=== PATIENT | male | born 1970 | race Two or more races ===

== ENCOUNTER 2016-11-29 16:59 | Inpatient (IN) | payer OTHER ==
[2016-11-29 22:09] VITALS: BMI 20.2
--- NOTE | 2016-11-29 22:49 | HP ---
CIWA Score - CIWA Score Nausea/Vomitin Muscle Tremors: 4-Moderate,w/Arms Extend Anxiety: 4-Mod. Anxious/Guarded Agitation: 4-Moderately Restless Paroxysmal Sweats: 1-Minimal Palms Moist Orientation: 3-Disoriented Date>2 days Tacttile Disturbances: 0-None Auditory Disturbances: 0-None Visual Disturbances: 0-None Headache: 1-Very Mild CIWA-Ar Total Score: 19 Admission ROS BHS - HPI Chief Complaint: withdrawal sx Allergies/Adverse Reactions: Allergies Allergy/AdvReac Type Severity Reaction Status Date / Time haloperidol [From Haldol] Allergy Verified 11/29/16 22:54 haloperidol lactate Allergy Verified 11/29/16 22:54 [From Haldol] History of Present Illness: 46 years old male with long history of alcohol xanax nicotine dependence, has asthma and schizophrenia is admitted to detox Exam Limitations: No Limitations - Ebola screening Have you traveled outside of the country in the last 21 days: No Have you had contact with anyone from an Ebola affected area: No Have you been sick,other than usual withdrawal symptoms: No Do you have a fever: No - Review of Systems Constitutional: Chills, Loss of Appetite, Changes in sleep, Unexplained wgt Loss EENT: reports: No Symptoms Reported Respiratory: reports: Cough, SOB with Exertion Cardiac: reports: No Symptoms Reported GI: reports: Nausea, Poor Fluid Intake, Indigestion, Abdominal cramping : reports: No Symptoms Reported Musculoskeletal: reports: Back Pain, Joint Pain, Muscle Pain, Neck Pain Integumentary: reports: No Symptoms Reported Neuro: reports: Tremors Endocrine: reports: No Symptoms Reported Hematology: reports: No Symptoms Reported Psychiatric: reports: Judgement Intact, Anxious, Depressed Other Systems: Reviewed and Negative Patient History - Patient Medical History Hx Anemia: No Hx Asthma: Yes Hx Chronic Obstructive Pulmonary Disease (COPD): Yes Hx Cancer: No Hx Cardiac Disorders: No Hx Congestive Heart Failure: No Hx Hypertension: No Hx Hypercholesterolemia: Yes (unknown medication) Hx Pacemaker: No HX Cerebrovascular Accident: No Hx Seizures: No Hx Dementia: No Hx Diabetes: No Hx Gastrointestinal Disorders: Yes Hx Liver Disease: No Hx Genitourinary Disorders: No Hx Sexually Transmitted Disorders: No Hx Renal Disease (ESRD): No Hx Thyroid Disease: No Hx Human Immunodeficiency Virus (HIV): No Hx Hepatitis C: No Hx Depression: No Hx Suicide Attempt: Yes (07/2916 over dose) Hx Bipolar Disorder: No Hx Schizophrenia: Yes - Patient Surgical History Past Surgical History: Yes Hx Neurologic Surgery: No Hx Cataract Extraction: No Hx Cardiac Surgery: No Hx Lung Surgery: No Hx Breast Surgery: No Hx Breast Biopsy: No Hx Abdominal Surgery: No Hx Appendectomy: No Hx Cholecystectomy: No Hx Genitourinary Surgery: No Hx Orthopedic Surgery: No Other Surgical History: hemorrhoid removed 2013 Anesthesia Reaction: No - PPD History Previous Implant?: Yes Documented Results: Negative w/o proof Implanted On Prior R Admission?: No PPD to be Administered?: Yes - Smoking Cessation Smoking history: Current every day smoker Have you smoked in the past 12 months: Yes Aproximately how many cigarettes per day: 20 Hx Chewing Tobacco Use: No Initiated information on smoking cessation: Yes 'Breaking Loose' booklet given: 11/29/16 - Substance & Tx. History Hx Alcohol Use: Yes Hx Substance Use: Yes Substance Use Type: Alcohol, Heroin, Marijuana, Tranquilizers Hx Substance Use Treatment: Yes - Substances Abused Alcohol Route: Oral Frequency: Daily Amount used: gallon volka Age of first use: 11 Date of Last Use: 11/28/16 Alprazolam (Xanax) Route: Oral Frequency: Daily Amount used: 10 mg Age of first use: 21 Date of Last Use: 11/28/16 Family Disease History - Family Disease History Family Disease History: CA: Father (), Mother (), Brother ( prostate), Other: Sister (no contact) Admission Physical Exam S - Vital Signs Vital Signs: Vital Signs - 24 hr 11/29/16 22:05 Temperature 98.6 F Pulse Rate 66 Respiratory 18 Rate Blood Pressure 120/76 - Physical General Appearance: Yes: Thin, Tremorous, Irritable, Sweating, Anxious HEENTM: Yes: Hearing grossly Normal, Normal ENT Inspection, Normocephalic, Normal Voice Respiratory: Yes: Chest Non-Tender, Lungs Clear, Normal Breath Sounds, No Respiratory Distress, No Accessory Muscle Use Neck: Yes: Supple, Trachea in good position Breast: Yes: Breasts Symetrical Cardiology: Yes: Regular Rhythm, Regular Rate, S1, S2 Abdominal: Yes: Non Tender, Soft Genitourinary: Yes: Within Normal Limits Back: Yes: Normal Inspection Musculoskeletal: Yes: full range of Motion, Gait Steady Extremities: Yes: Normal Range of Motion, Non-Tender, Tremors Neurological: Yes: Alert, Motor Strength 5/5, Normal Response Integumentary: Yes: Warm, Moist Lymphatic: Yes: Within Normal Limits - Diagnostic (1) Alcohol dependence with uncomplicated withdrawal Current Visit: Yes Status: Acute (2) Sedative, hypnotic or anxiolytic dependence with withdrawal, uncomplicated Current Visit: Yes Status: Acute (3) GERD (gastroesophageal reflux disease) Current Visit: Yes Status: Acute Qualifiers: Esophagitis presence: without esophagitis Qualified Code(s): K21.9 - Gastro-esophageal reflux disease without esophagitis (4) Nicotine dependence Current Visit: Yes Status: Acute Qualifiers: Nicotine product type: cigarettes Substance use status: in withdrawal Qualified Code(s): F17.213 - Nicotine dependence, cigarettes, with withdrawal (5) Asthma Current Visit: Yes Status: Acute Qualifiers: Asthma severity: mild intermittent Asthma complication type: with status asthmaticus Qualified Code(s): J45.22 - Mild intermittent asthma with status asthmaticus (6) Weight loss Current Visit: Yes Status: Acute (7) Schizophrenia Current Visit: Yes Status: Suspected Qualifiers: Schizophrenia type: paranoid schizophrenia Qualified Code(s): F20.0 - Paranoid schizophrenia Urine Drug Screen - Results Drug Screen Negative: No Urine Drug Screen Results: THC-Marijuana, OPI-Opiates, BZO-Benzodiazepines, MTD- Methadone
[2016-11-29] MEDS ORDERED: MAGNESIUM CITRATE 300 ML BOTTLE PO PRN (23:05)
[2016-11-29] MEDS ORDERED: LOPERAMIDE HCL 2 MG CAPSULE PO PRN (23:05)
[2016-11-29] MEDS ORDERED: P-EPHED 60MG/TRIPROLIDI 2.5MG TABLET PO PRN (23:05)
[2016-11-29] MEDS ORDERED: MAG HYDROX/AL HYDROX/SIMETH 30 ML UNIT-DOSE CUP PO PRN (23:05)
[2016-11-29] MEDS ORDERED: chlordiazePOXIDE HCL 25 MG CAPSULE PO PRN (23:05)
[2016-11-29] MEDS ORDERED: IBUPROFEN 400 MG TABLET (FP) PO PRN (23:05)
[2016-11-29] MEDS ORDERED: NICOTINE POLACRILEX 2 MG GUM BC PRN (23:05)
[2016-11-29] MEDS ORDERED: MAGNESIUM HYDROX 2400MG/30ML ORAL SUSPENSION 30 ML CUP PO PRN (23:05)
[2016-11-29] MEDS ORDERED: MENTHOL/PHENOL 1 EACH UD MM PRN (23:05)
[2016-11-29] MEDS ORDERED: guaiFENesin/D-METHORPHAN HB 10 ML UNIT-DOSE CUPS PO PRN (23:05)
[2016-11-29] MEDS ORDERED: ALBUTEROL SO4 6.7 GM HFA INHALER IH PRN (23:08)
[2016-11-30] MEDS: chlordiazePOXIDE HCL 25 MG CAPSULE PO SCH ×5 (01:43→22:32)
[2016-11-30] MEDS: diphenhydrAMINE HCL 50 MG CAPSULE PO PRN ×2 (01:45→22:33)
[2016-11-30] MEDS ORDERED: METHADONE HCL 40 MG DISPERSABLE TABLET PO SCH (07:30)
[2016-11-30] MEDS ORDERED: METHADONE 30 MG, METHADONE 5 MG PO SCH (08:10)
[2016-11-30] MEDS ORDERED: METHADONE HCL 10 MG TABLET PO ONE (09:45)
[2016-11-30 09:49] LABS: MCH 31.5 pg (25.7-33.7); MCHC 33.2 g/dl (32.0-35.9); MEAN CELL VOLUME 94.7 fl (80-96); MEAN PLT VOLUME 7.6 fl (7.5-11.1); PLATELET COUNT 257 K/MM3 (134-434); RDW 13.9 % (11.9-15.9); WHITE BLOOD COUNT 4.3 K/mm3 (4.0-10.0)
--- NOTE | 2016-11-30 09:50 | PN ---
S CIWA - CIWA Score Nausea/Vomitin-No Nausea/No Vomiting Muscle Tremors: 3 Anxiety: 4-Mod. Anxious/Guarded Agitation: 3 Paroxysmal Sweats: 3 Orientation: 0-Oriented Tacttile Disturbances: 0-None Auditory Disturbances: 0-None Visual Disturbances: 0-None Headache: 0-None Present CIWA-Ar Total Score: 13 BHS Progress Note (SOAP) Subjective: anxiety,tremors,sweating,interrupted sleep,restless. Pt. is on methadone 55mg daily,however he missed 4 days & was given 35mg on 11/29,we'll give him 45mg today and resume 55mg tomorrow. Objective: 11/30/16 09:50 Vital Signs - 8 hr 11/30/16 11/30/16 03:30 06:19 Temperature 97.7 F Pulse Rate 75 Respiratory 18 16 Rate Blood Pressure 108/66 Assessment: 11/30/16 09:50 withdrawal sx. Plan: continue detox
[2016-11-30 09:56] LABS: ANION GAP 7 (8-16); BILIRUBIN,TOTAL 0.2 mg/dL (0.2-1.0); CO2 30 mmol/L (21-32); GLUCOSE,RANDOM 89 mg/dL (74-106); SGOT/AST 31 U/L (15-37); SGPT/ALT 33 U/L (12-78)
[2016-11-30 09:57] LABS: ALK PHOS 66 U/L (45-117)
[2016-11-30] MEDS: NICOTINE 21 MG/24 HOURS TOPICAL PATCH TD SCH (10:14)
[2016-11-30] MEDS: PRENATAL VITAMINS W/ FOLIC ACID TABLET (FP) PO SCH (10:14)
[2016-11-30] MEDS: RANITIDINE HCL 150 MG TABLET (FP) PO SCH ×2 (10:14→22:31)
[2016-11-30] MEDS ORDERED: METHADONE 40 MG, METHADONE 5 MG PO ONE (10:15)
[2016-11-30] MEDS ORDERED: METHADONE HCL 40 MG DISPERSABLE TABLET ONE (10:17)
[2016-11-30] MEDS ORDERED: METHADONE HCL 5 MG TABLET ONE (10:18)
--- NOTE | 2016-11-30 13:24 | CONSULT ---
[facility] Psychiatric Consult - Data Date of interview: 11/30/16 Admission source: [facility] Identifying data: First admission to [facility] for this 46 y/o AA male seeking detox treatment on for alcohol,marijuana and benzodiazepine (xanax) dependence.Patient is single without children,domiciled,unemployed and supported on Welfare benefits. Substance Abuse History: - Smoking Cessation. Smoking history: Current every day smoker. Have you smoked in the past 12 months: Yes. Aproximately how many cigarettes per day: 20. Hx Chewing Tobacco Use: No. Initiated information on smoking cessation: Yes. 'Breaking Loose' booklet given: 11/29/16. - Substance & Tx. History. Hx Alcohol Use: Yes. Hx Substance Use: Yes. Substance Use Type : Alcohol, Heroin, Marijuana, Tranquilizers. Hx Substance Use Treatment: Yes. - Substances Abused. Alcohol. Route: Oral. Frequency: Daily. Amount used : gallon volka. Age of first use: 11. Date of Last Use: 11/28/16. Alprazolam (Xanax). Route: Oral. Frequency: Daily. Amount used: 10 mg. Age of first use: 21. Date of Last Use: 11/28/16. Confirmed by patient in this interview. Medical History: Consistent with bronchial asthma,GERD and hypercholesterolemia.Noted history of coma following a massive overdose with drugs + psychotropic medications (details are unclear) years ago according to the patient. Psychiatric History: Patient is a disorganized and obscure historian.Difficult to follow.Mr Pena does report a history of multiple psychiatric hospitalizations but he seems incapable of naming a few hospitals." I don't recall." He indicates that " everything started when I was young ".It appears that this patient had his first psychiatric hospitalization during early adolescence.He endorses PTSD,MDD and Bipolar Disorder.Patient denies affiliation with any OPD care providers.Review of pharmacy claims shows filled scripts for seroquel,valproate,zoloft on 11/22/16 @ [facility]/Remeron 15 mg on 09/28/16).Helen Pena reports a remote history of suicide attempt (via overdose with pills).Patient indicates that he is on methadone maintenance (55 mg/day) at the [facility]. Physical/Sexual Abuse/Trauma History: Patient denies. Additional Comment: Urine Drug Screen Results: THC-Marijuana, OPI-Opiates, BZO- Benzodiazepines, MTD-Methadone.Noted. Mental Status Exam - Mental Status Exam Alert and Oriented to: Time, Place, Person Cognitive Function: Grossly Intact Patient Appearance: Unkempt, Disheveled Mood: Withdrawn, Anxious, Apprehensive Affect: Mood Congruent Patient Behavior: Passive, Fatigued, Cooperative (superficially) Speech Pattern: Unclear (at times) Voice Loudness: Normal Thought Process: Disorganized Thought Disorder: Bizarre Hallucinations: Denies Suicidal Ideation: Denies Homicidal Ideation: Denies Insight/Judgement: Poor Sleep: Poorly, Difficulty falling asleep Appetite: Fair, Weight loss Muscle strength/Tone: Normal Gait/Station: Normal Psychiatric Findings - Problem List ([place] 1, 2,3) (1) Alcohol dependence with uncomplicated withdrawal Current Visit: Yes Status: Acute (2) Opioid dependence on agonist therapy Current Visit: Yes Status: Chronic (3) Sedative, hypnotic or anxiolytic dependence with withdrawal, uncomplicated Current Visit: Yes Status: Acute (4) Nicotine dependence Current Visit: Yes Status: Acute Qualifiers: Nicotine product type: cigarettes Substance use status: in withdrawal Qualified Code(s): F17.213 - Nicotine dependence, cigarettes, with withdrawal (5) Bipolar disorder Current Visit: Yes Status: Suspected (6) Asthma Current Visit: Yes Status: Chronic Qualifiers: Asthma severity: mild intermittent Asthma complication type: with status asthmaticus Qualified Code(s): J45.22 - Mild intermittent asthma with status asthmaticus (7) Weight loss Current Visit: Yes Status: Chronic (8) Insomnia Current Visit: Yes Status: Acute - Initial Treatment Plan Initial Treatment Plan: Psychoeducation.Detoxification.Medications (as per claims filled 11/22/16 @ [facility]) :zoloft 25 mg po daily + seroquel 100 mg po hs + depakote ER 250 mg po hs + Remeron 7.5 mg po hs.Discussed with patient:side effects + benefits of each medication.He recognized them as familiar medications prescribed by his primary care physician.Mr Pena agrees to resume these drugs in this hospital course.Observation.No scripts necessary at discharge (medications already available at home).
[2016-11-30] MEDS ORDERED: DIVALPROEX NA *ER* EXTEND REL 250 MG TABLET.SA PO ONE (13:31)
[2016-11-30 20:09] LABS: URINE APPEARANCE CLEAR; URINE BILIRUBIN NEGATIVE (NEGATIVE); URINE BLOOD NEGATIVE (NEGATIVE); URINE COLOR LTYELLOW; URINE GLUCOSE (UA) NEGATIVE (NEGATIVE); URINE KETONE NEGATIVE (NEGATIVE); URINE LEUK ESTERASE NEGATIVE (NEGATIVE); URINE NITRITE NEGATIVE (NEGATIVE); URINE PROTEIN NEGATIVE (NEGATIVE); URINE UROBILINOGEN NEGATIVE E.U./dl (0.2-1.0)
[2016-11-30] MEDS ORDERED: QUEtiapine FUMARATE 100 MG TABLET (FP) PO SCH (22:00)
[2016-11-30] MEDS ORDERED: MIRTAZAPINE 15 MG TABLET (FP) PO SCH (22:00)
[2016-11-30] MEDS: THIAMINE HCL 100 MG TABLET (FP) PO SCH (22:32)
--- NOTE | 2016-11-30 23:34 | EKG ---
Test Reason : Blood Pressure : / mmHG Vent. Rate : 058 BPM Atrial Rate : 058 BPM P-R Int : 180 ms QRS Dur : 088 ms QT Int : 426 ms P-R-T Axes : 013 -22 000 degrees QTc Int : 418 ms SINUS BRADYCARDIA VOLTAGE CRITERIA FOR LEFT VENTRICULAR HYPERTROPHY ABNORMAL ECG NO PREVIOUS ECGS AVAILABLE Confirmed by NAVEEN LEVIN, MONTSERRAT ([id number]) on 11/30/2016 11:34:06 PM Referred By: Colt Cabrera Confirmed By:MONTSERRAT HODGE MD
[2016-12-01] MEDS ORDERED: METHADONE HCL 40 MG DISPERSABLE TABLET ONE (05:26)
[2016-12-01] MEDS ORDERED: METHADONE HCL 5 MG TABLET ONE (05:26)
[2016-12-01] MEDS: ACETAMINOPHEN 325 MG TABLET (FP) PO PRN ×2 (06:00→16:52)
[2016-12-01] MEDS: METHADONE 40 MG, METHADONE 15 MG PO SCH (06:00)
[2016-12-01] MEDS ORDERED: METHADONE HCL 40 MG DISPERSABLE TABLET PO SCH (06:00)
[2016-12-01] MEDS: chlordiazePOXIDE HCL 25 MG CAPSULE PO SCH ×3 (06:00→16:55)
[2016-12-01] MEDS: PRENATAL VITAMINS W/ FOLIC ACID TABLET (FP) PO SCH (10:35)
[2016-12-01] MEDS: NICOTINE 21 MG/24 HOURS TOPICAL PATCH TD SCH (10:35)
[2016-12-01] MEDS: RANITIDINE HCL 150 MG TABLET (FP) PO SCH ×2 (10:35→23:22)
[2016-12-01] MEDS: SERTRALINE HCL 25 MG TABLET (FP) PO SCH (10:35)
[2016-12-01] MEDS ORDERED: IBUPROFEN 600 MG TABLET (FP) PO PRN (17:02)
--- NOTE | 2016-12-01 17:11 | PN ---
S CIWA - CIWA Score Nausea/Vomitin-No Nausea/No Vomiting Muscle Tremors: 3 Anxiety: 4-Mod. Anxious/Guarded Agitation: 3 Paroxysmal Sweats: 3 Orientation: 0-Oriented Tacttile Disturbances: 0-None Auditory Disturbances: 0-None Visual Disturbances: 0-None Headache: 0-None Present CIWA-Ar Total Score: 13 BHS Progress Note (SOAP) Subjective: anxiety,tremors,sweating,interrupted sleep,restless. Objective: 12/01/16 17:10 Vital Signs - 8 hr 12/01/16 12/01/16 09:43 15:00 Temperature 97.8 F 97.0 F L Pulse Rate 79 67 Respiratory 18 18 Rate Blood Pressure 108/68 94/87 Laboratory Tests 11/30/16 11/30/16 11/30/16 07:00 07:00 07:00 WBC 4.3 RBC 3.92 L Hgb 12.3 Hct 37.1 MCV 94.7 MCHC 33.2 RDW 13.9 Plt Count 257 MPV 7.6 Sodium 143 Potassium 4.4 Chloride 106 Carbon Dioxide 30 Anion Gap 7 L BUN 21 H Creatinine 1.0 Creat Clearance w eGFR > 60 Random Glucose 89 Calcium 9.0 Total Bilirubin 0.2 AST 31 ALT 33 Alkaline Phosphatase 66 Total Protein 6.0 L Albumin 3.0 L Urine Color Urine Appearance Urine pH Ur Specific [place] Urine Protein Urine Glucose (UA) Urine Ketones Urine Blood Urine Nitrite Urine Bilirubin Urine Urobilinogen Ur Leukocyte Esterase RPR Titer Nonreactive 11/30/16 15:00 WBC RBC Hgb Hct MCV MCHC RDW Plt Count MPV Sodium Potassium Chloride Carbon Dioxide Anion Gap BUN Creatinine Creat Clearance w eGFR Random Glucose Calcium Total Bilirubin AST ALT Alkaline Phosphatase Total Protein Albumin Urine Color Ltyellow Urine Appearance Clear Urine pH 6.0 Ur Specific [place] 1.019 Urine Protein Negative Urine Glucose (UA) Negative Urine Ketones Negative Urine Blood Negative Urine Nitrite Negative Urine Bilirubin Negative Urine Urobilinogen Negative Ur Leukocyte Esterase Negative RPR Titer labs noted Assessment: 12/01/16 17:11 withdrawal sx. Plan: continue detox
[2016-12-01] MEDS ORDERED: QUEtiapine FUMARATE 50 MG TABLET PO SCH (22:00)
[2016-12-01] MEDS: chlordiazePOXIDE 5 MG CAPSULE PO SCH (22:27)
[2016-12-01] MEDS: THIAMINE HCL 100 MG TABLET (FP) PO SCH (22:27)
[2016-12-01] MEDS ORDERED: QUEtiapine FUMARATE 100 MG TABLET (FP) PO ONE (23:30)
[2016-12-02] MEDS ORDERED: METHADONE HCL 5 MG TABLET ONE (04:08)
[2016-12-02] MEDS ORDERED: METHADONE HCL 40 MG DISPERSABLE TABLET ONE (04:08)
[2016-12-02] MEDS: METHADONE 40 MG, METHADONE 15 MG PO SCH (05:49)
[2016-12-02] MEDS: chlordiazePOXIDE 5 MG CAPSULE PO SCH ×3 (05:49→17:40)
--- NOTE | 2016-12-02 08:21 | PN ---
Psychiatric Progress Note Vital Signs: Vital Signs Period Temp Pulse Resp BP Sys/Hyde Pulse Ox Last 24 Hr 97.0 F-98.5 F 67-95 16-20 94-108/60-87 Date of Session: 12/02/16 Chief Complaint:: Insomnia HPI: As per nursing reports patient asking for Seroquel 100mg po qhs due to insomnia, patient has been started on Seroquel 100mg po qhs but d/c due to sedative condition next am, yesterday as per MD conduit worker patient was given one dosage of Seroquel 100mg po qhs and patient asking to continue Seroquel 100mg po qhs for insomnia nightly Current Medications: Active Medications Generic Name Dose Route Start Last Admin Trade Name Freq PRN Reason Stop Dose Admin Acetaminophen 650 mg 11/29/16 23:05 12/01/16 16:52 Tylenol - PO 650 mg Q4H PRN Administration FEVER OR PAIN Al Hydroxide/Mg Hydroxide 30 ml 11/29/16 23:05 Mylanta Oral Suspension - PO Q6H PRN DYSPEPSIA Albuterol Sulfate 2 puff 11/29/16 23:08 Ventolin Hfa Inhaler - IH Q4H PRN SHORT OF BREATH/WHEEZING Chlordiazepoxide HCl 10 mg 12/02/16 23:00 Librium - PO 12/03/16 17:01 [id number] SEBASTIEN Chlordiazepoxide HCl 25 mg 11/29/16 23:05 11/30/16 14:32 Librium - PO 12/02/16 23:04 25 mg Q4H PRN Administration WITHDRAWAL(CONT SUBST) Chlordiazepoxide HCl 15 mg 12/01/16 23:00 12/02/16 05:49 Librium - PO 12/02/16 17:01 Not Given [id number] SEBASTIEN Diphenhydramine HCl 50 mg 11/29/16 23:05 11/30/16 22:33 Benadryl - PO 50 mg HSMR1 PRN Administration INSOMNIA Eucalyptus/Menthol/Phenol/Sorbitol 1 each 11/29/16 23:05 Cepastat Lozenge - MM Q4H PRN SORE THROAT Guaifenesin 10 ml 11/29/16 23:05 Robitussin Dm - PO Q6H PRN COUGH Ibuprofen 600 mg 12/01/16 17:02 Motrin - PO Q4H PRN PAIN Loperamide HCl 4 mg 11/29/16 23:05 Imodium - PO Q6H PRN DIARRHEA Magnesium Citrate 300 ml 11/29/16 23:05 Citroma - PO Q48H PRN CONSTIPATION Magnesium Hydroxide 30 ml 11/29/16 23:05 Milk Of Magnesia - PO DAILY PRN CONSTIPATION Methadone HCl 40 mg/ Methadone 55 mg 12/01/16 06:00 12/02/16 05:49 HCl 15 mg PO 55 mg DAILY@0600 SEBASTIEN Administration Nicotine 21 mg 11/30/16 10:00 12/01/16 10:35 Nicoderm Patch - TD Not Given DAILY SEBASTIEN Nicotine Polacrilex 2 mg 11/29/16 23:05 Nicorette Gum - BC Q2H PRN NICOTINE REPLACEMENT RX Multivit/Folic Acid/Iron 1 tab 11/30/16 10:00 12/01/16 10:35 Vitamins (Sjr) - PO Not Given DAILY SEBASTIEN Pseudoephedrine/Triprolidine 1 combo 11/29/16 23:05 Actifed - PO TID PRN NASAL CONGESTION Quetiapine Fumarate 100 mg 12/02/16 22:00 Seroquel - PO HS SEBASTIEN Ranitidine HCl 150 mg 11/30/16 10:00 12/01/16 23:22 Zantac - PO 150 mg BID SEBASTIEN Administration Sertraline HCl 25 mg 12/01/16 10:00 12/01/16 10:35 Zoloft - PO Not Given DAILY SEBASTIEN Thiamine HCl 100 mg 11/30/16 22:00 12/01/16 22:27 Vitamin B1 - PO 100 mg HS SEBASTIEN Administration Medication(s) Change(s): Seroquel 100mg po qhs Mental Status Exam - Mental Status Exam Alert and Oriented to: Person Cognitive Function: Fair, Impaired Patient Appearance: Unkempt Mood: Sad Affect: Flat Patient Behavior: Cooperative Speech Pattern: Delayed Voice Loudness: Mildly Soft/Quiet Thought Process: Circumstantial Thought Disorder: Being Controlled Hallucinations: Denies Suicidal Ideation: Denies Homicidal Ideation: Denies Insight/Judgement: Fair Sleep: Difficulty falling asleep Appetite: Weight loss Muscle strength/Tone: Mild Hypotonicity Gait/Station: Shuffling Additional Comments: Seoquel 100mg po qhs Psychiatric Treatment Plan - Problem List (1) Alcohol dependence with uncomplicated withdrawal Current Visit: Yes (2) Sedative, hypnotic or anxiolytic dependence with withdrawal, uncomplicated Current Visit: Yes (3) Opioid dependence on agonist therapy Current Visit: Yes (4) Bipolar disorder Current Visit: Yes (5) Schizophrenia Current Visit: Yes Qualifiers: Schizophrenia type: paranoid schizophrenia Qualified Code(s): F20.0 - Paranoid schizophrenia Initial treatment plan: Seoquel 100mg po qhs
[2016-12-02] MEDS: NICOTINE 21 MG/24 HOURS TOPICAL PATCH TD SCH (10:24)
[2016-12-02] MEDS: RANITIDINE HCL 150 MG TABLET (FP) PO SCH ×2 (10:24→22:19)
[2016-12-02] MEDS: PRENATAL VITAMINS W/ FOLIC ACID TABLET (FP) PO SCH (10:24)
[2016-12-02] MEDS: SERTRALINE HCL 25 MG TABLET (FP) PO SCH (10:24)
--- NOTE | 2016-12-02 11:11 | PN ---
BHS Progress Note (SOAP) Subjective: SWEATING,INTERRUPTED SLEEP,RESTLESS. Objective: 12/02/16 11:10 Vital Signs - 8 hr 12/02/16 12/02/16 12/02/16 03:27 06:08 09:20 Temperature 98.5 F 99.4 F Pulse Rate 95 H 79 Respiratory 20 16 18 Rate Blood Pressure 104/62 103/58 Laboratory Tests 11/30/16 11/30/16 11/30/16 07:00 07:00 07:00 WBC 4.3 RBC 3.92 L Hgb 12.3 Hct 37.1 MCV 94.7 MCHC 33.2 RDW 13.9 Plt Count 257 MPV 7.6 Sodium 143 Potassium 4.4 Chloride 106 Carbon Dioxide 30 Anion Gap 7 L BUN 21 H Creatinine 1.0 Creat Clearance w eGFR > 60 Random Glucose 89 Calcium 9.0 Total Bilirubin 0.2 AST 31 ALT 33 Alkaline Phosphatase 66 Total Protein 6.0 L Albumin 3.0 L Urine Color Urine Appearance Urine pH Ur Specific [place] Urine Protein Urine Glucose (UA) Urine Ketones Urine Blood Urine Nitrite Urine Bilirubin Urine Urobilinogen Ur Leukocyte Esterase RPR Titer Nonreactive 11/30/16 15:00 WBC RBC Hgb Hct MCV MCHC RDW Plt Count MPV Sodium Potassium Chloride Carbon Dioxide Anion Gap BUN Creatinine Creat Clearance w eGFR Random Glucose Calcium Total Bilirubin AST ALT Alkaline Phosphatase Total Protein Albumin Urine Color Ltyellow Urine Appearance Clear Urine pH 6.0 Ur Specific [place] 1.019 Urine Protein Negative Urine Glucose (UA) Negative Urine Ketones Negative Urine Blood Negative Urine Nitrite Negative Urine Bilirubin Negative Urine Urobilinogen Negative Ur Leukocyte Esterase Negative RPR Titer LABS NOTED Assessment: 12/02/16 11:11 WITHDRAWAL SX. Plan: CONTINUE DETOX
[2016-12-02] MEDS: ACETAMINOPHEN 325 MG TABLET (FP) PO PRN (16:46)
--- NOTE | 2016-12-02 20:49 | PN ---
BHS Progress Note (SOAP) Subjective: hemorrhoid Objective: 12/02/16 20:48 small strike fresh blood noted on toilet paper Assessment: 12/02/16 20:48 hemorrhoid Plan: patient was using hemorrhoid cream at home hemorrhoid ointment x 1 continue detox
[2016-12-02] MEDS ORDERED: BENZOCAINE 28 GM HEMORRHOIDAL OINTMENT PR ONE (21:00)
[2016-12-02] MEDS ORDERED: QUEtiapine FUMARATE 100 MG TABLET (FP) PO SCH (22:00)
[2016-12-02] MEDS: chlordiazePOXIDE HCL 10 MG CAPSULE PO SCH (22:19)
[2016-12-02] MEDS: THIAMINE HCL 100 MG TABLET (FP) PO SCH (22:19)
[2016-12-03] MEDS ORDERED: METHADONE HCL 40 MG DISPERSABLE TABLET ONE (03:19)
[2016-12-03] MEDS ORDERED: METHADONE HCL 5 MG TABLET ONE (03:20)
[2016-12-03] MEDS: METHADONE 40 MG, METHADONE 15 MG PO SCH (05:33)
[2016-12-03] MEDS: chlordiazePOXIDE HCL 10 MG CAPSULE PO SCH ×2 (05:33→10:42)
[2016-12-03 06:22] VITALS: BP 107/68; PULSE 63; TEMP 98.6
--- NOTE | 2016-12-03 08:23 | PN ---
BHS Progress Note (SOAP) Subjective: C/O PAIN RADIATING DOWN BACK OF LEFT LEG, SHARP STABBING NEW ONSET Objective: 12/03/16 08:21 Vital Signs - 8 hr 12/03/16 12/03/16 03:34 06:21 Temperature 98.6 F Pulse Rate 63 Respiratory 18 18 Rate Blood Pressure 107/68 Laboratory Tests 11/30/16 11/30/16 11/30/16 07:00 07:00 07:00 WBC 4.3 RBC 3.92 L Hgb 12.3 Hct 37.1 MCV 94.7 MCHC 33.2 RDW 13.9 Plt Count 257 MPV 7.6 Sodium 143 Potassium 4.4 Chloride 106 Carbon Dioxide 30 Anion Gap 7 L BUN 21 H Creatinine 1.0 Creat Clearance w eGFR > 60 Random Glucose 89 Calcium 9.0 Total Bilirubin 0.2 AST 31 ALT 33 Alkaline Phosphatase 66 Total Protein 6.0 L Albumin 3.0 L Urine Color Urine Appearance Urine pH Ur Specific [place] Urine Protein Urine Glucose (UA) Urine Ketones Urine Blood Urine Nitrite Urine Bilirubin Urine Urobilinogen Ur Leukocyte Esterase RPR Titer Nonreactive 11/30/16 15:00 WBC RBC Hgb Hct MCV MCHC RDW Plt Count MPV Sodium Potassium Chloride Carbon Dioxide Anion Gap BUN Creatinine Creat Clearance w eGFR Random Glucose Calcium Total Bilirubin AST ALT Alkaline Phosphatase Total Protein Albumin Urine Color Ltyellow Urine Appearance Clear Urine pH 6.0 Ur Specific [place] 1.019 Urine Protein Negative Urine Glucose (UA) Negative Urine Ketones Negative Urine Blood Negative Urine Nitrite Negative Urine Bilirubin Negative Urine Urobilinogen Negative Ur Leukocyte Esterase Negative RPR Titer low albmin, increased bun Assessment: 02completed detox, medically stable, dehydration, malnutrition /low alb 2/2 substance use Plan: medically stable, d/c today, encoruage fluids, dietary cousneling provided re: healthy eating habits, f/u PCP after discharge, PAIN MEDICATIONS PRESCRIBED, FIRST DOSE NOW./
--- NOTE | 2016-12-03 08:28 | DS ---
[facility] Detox Discharge Summary Admission Date: 11/29/16 Discharge Date: 12/03/16 - History Present History: Alcohol Dependence, Opioid Dependence, Sedative Dependence Pertinent Past History: GERD, anxiety, depression, insomnia, nicotine dependence, recent wt loss, anorexia for substance use - Physical Exam Results Vital Signs: Vital Signs Temperature 98.6 F 12/03/16 06:21 Pulse Rate 63 12/03/16 06:21 Respiratory Rate 18 12/03/16 06:21 Blood Pressure 107/68 12/03/16 06:21 O2 Sat by Pulse Oximetry (%) Pertinent Admission Physical Exam Findings: withdrawal sx - Treatment Hospital Course: Detox Protocol Followed, Detoxed Safely, Responded well, Discharged Condition Good, Rehab Referral Accepted - Medication Discharge Medications: Ambulatory Orders Amitriptyline HCl [Elavil -] 50 mg PO HS #30 tablet 12/03/16 Cyclobenzaprine HCl [Flexeril -] 10 mg PO TID #30 tablet 12/03/16 Gabapentin [Neurontin -] 100 mg PO TID #90 capsule 12/03/16 Naproxen [Naprosyn -] 500 mg PO BID #60 tablet 12/03/16 Ranitidine [Zantac -] 150 mg PO BID #30 tablet 12/03/16 Sertraline HCl [Zoloft -] 25 mg PO DAILY #30 tablet 12/03/16 - Diagnosis (1) Alcohol dependence with uncomplicated withdrawal Current Visit: Yes Status: Chronic (2) GERD (gastroesophageal reflux disease) Current Visit: Yes Status: Acute Qualifiers: Esophagitis presence: without esophagitis Qualified Code(s): K21.9 - Gastro-esophageal reflux disease without esophagitis (3) Insomnia Current Visit: Yes Status: Acute (4) Nicotine dependence Current Visit: Yes Status: Acute Qualifiers: Nicotine product type: cigarettes Substance use status: in withdrawal Qualified Code(s): F17.213 - Nicotine dependence, cigarettes, with withdrawal (5) Sedative, hypnotic or anxiolytic dependence with withdrawal, uncomplicated Current Visit: Yes Status: Acute (6) Asthma Current Visit: Yes Status: Chronic Qualifiers: Asthma severity: mild intermittent Asthma complication type: with status asthmaticus Qualified Code(s): J45.22 - Mild intermittent asthma with status asthmaticus (7) Weight loss Current Visit: Yes Status: Chronic (8) Bipolar disorder Current Visit: Yes Status: Suspected (9) Schizophrenia Current Visit: Yes Status: Suspected Qualifiers: Schizophrenia type: paranoid schizophrenia Qualified Code(s): F20.0 - Paranoid schizophrenia (10) Opioid dependence on agonist therapy Current Visit: Yes Status: Acute (11) Sciatic leg pain Current Visit: Yes Status: Acute - AMA Did Patient Leave Against Medical Advice: No
[2016-12-03] MEDS ORDERED: ALBUTEROL SO4 6.7 GM HFA INHALER IH PRN (09:44)
[2016-12-03] MEDS ORDERED: NAPROXEN 500 MG TABLET (FP) PO SCH (10:00)
[2016-12-03] MEDS: RANITIDINE HCL 150 MG TABLET (FP) PO SCH (10:39)
[2016-12-03] MEDS: PRENATAL VITAMINS W/ FOLIC ACID TABLET (FP) PO SCH (10:39)
[2016-12-03] MEDS: SERTRALINE HCL 25 MG TABLET (FP) PO SCH (10:41)
[2016-12-03] MEDS: NICOTINE 21 MG/24 HOURS TOPICAL PATCH TD SCH (10:42)
[2016-12-03] MEDS ORDERED: GABAPENTIN 100 MG CAPSULE (FP) PO SCH (14:00)
[2016-12-03] MEDS ORDERED: CYCLOBENZAPRINE HCL 10 MG TABLET (FP) PO SCH (14:00)
[2016-12-03] MEDS ORDERED: AMITRIPTYLINE HCL 25 MG TABLET (FP) PO SCH (22:00)
== END 2016-12-03 13:03 | disposition home or self-care (01) | DRG 773 ==
LOC: YASAS 16:59 → Y3N 23:20
PROVIDERS: ADMIT Internal Medicine; ATTEND Internal Medicine
PROC: HZ2ZZZZ Detoxification Services for Substance Abuse Treatment (ICD-10-PCS; principal; 2016-12-03)
DX: F11.20 Opioid dependence, uncomplicated (principal); F13.230 Sedative, hypnotic or anxiolytic dependence with withdrawal, uncomplicated; F10.230 Alcohol dependence with withdrawal, uncomplicated; F17.213 Nicotine dependence, cigarettes, with withdrawal; F20.0 Paranoid schizophrenia; F31.9 Bipolar disorder, unspecified; G47.00 Insomnia, unspecified; J45.22 Mild intermittent asthma with status asthmaticus; R63.4 Abnormal weight loss; Z68.20 Body mass index [BMI] 20.0-20.9, adult
CPT/HCPCS: 36415; 80053; 81003; 85027; 86593; 93005; 93010

== ENCOUNTER 2022-06-20 15:33 | Inpatient (IN) | payer OTHER ==
[2022-06-20 16:46] VITALS: BMI 19.3
[2022-06-20] MEDS ORDERED: MAG HYDROX/AL HYDROX/SIMETH 30 ML UNIT-DOSE CUP PO PRN (17:26)
[2022-06-20] MEDS ORDERED: ONDANSETRON *ODT* 4 MG TABLET SL PRN (17:26)
[2022-06-20] MEDS ORDERED: NICOTINE POLACRILEX 2 MG GUM BUC PRN (17:26)
[2022-06-20] MEDS ORDERED: IBUPROFEN 400 MG TABLET (FP) PO PRN (17:26)
[2022-06-20] MEDS ORDERED: MAGNESIUM HYDROX 2400MG/30ML ORAL SUSPENSION 30 ML CUP PO PRN (17:26)
[2022-06-20] MEDS ORDERED: IBUPROFEN 600 MG TABLET (FP) PO PRN (17:26)
[2022-06-20] MEDS ORDERED: MAGNESIUM CITRATE 300 ML BOTTLE PO PRN (17:26)
[2022-06-20] MEDS ORDERED: LOPERAMIDE HCL 2 MG CAPSULE PO PRN (17:26)
[2022-06-20] MEDS ORDERED: BISMUTH SUBSALICYLATE 524 MG/30 ML PO PRN (17:26)
[2022-06-20] MEDS ORDERED: DICYCLOMINE HCL 10 MG CAPSULE PO PRN (17:26)
[2022-06-20] MEDS ORDERED: ACETAMINOPHEN 325 MG TABLET (FP) PO PRN ×2 (17:26)
[2022-06-20] MEDS ORDERED: BENZOCAINE/MENTHOL (CHLORASEPTIC ) LOZENGE MM PRN (17:26)
[2022-06-20] MEDS: METHOCARBAMOL 500 MG TABLET PO PRN (22:28)
[2022-06-20] MEDS: THIAMINE HCL 100 MG TABLET (FP) PO SCH (22:29)
[2022-06-20] MEDS: MELATONIN 5 MG TABLETS PO SCH (22:29)
[2022-06-21] MEDS ORDERED: PNEUMOC 20-VAL CONJ-DIP CRM/PF 0.5 ML SYRINGE IM ONE (10:00)
[2022-06-21] MEDS ORDERED: ALBUTEROL SO4 HFA INHALER IH PRN (10:22)
[2022-06-21] MEDS ORDERED: chlordiazePOXIDE HCL 25 MG CAPSULE PO PRN (10:25)
[2022-06-21] MEDS: METHOCARBAMOL 500 MG TABLET PO PRN (10:35)
[2022-06-21] MEDS: PRENATAL VITAMINS W/ FOLIC ACID TABLET (FP) PO SCH (10:35)
[2022-06-21] MEDS: NICOTINE 14 MG/24 HOURS TOPICAL PATCH TD SCH (10:35)
[2022-06-21] MEDS: FAMOTIDINE 20 MG TABLET PO SCH (10:35)
[2022-06-21] MEDS: chlordiazePOXIDE HCL 25 MG CAPSULE PO SCH ×3 (10:36→22:36)
[2022-06-21] MEDS: TOLNAFTATE 1% CREAM 15 GM TUBE TP SCH ×2 (10:51→22:39)
[2022-06-21 12:01] LABS: HEMATOCRIT 39.7 % (35.4-49); HEMOGLOBIN 13.2 GM/dL (11.7-16.9); MCH 32.6 pg (25.7-33.7); MCHC 33.2 g/dl (32.0-35.9); MEAN CELL VOLUME 98.4 fl (80-96); MEAN PLT VOLUME 7.3 fl (7.5-11.1); PLATELET COUNT 266 10^3/uL (134-434); RBC 4.03 M/mm3 (4.00-5.60); RDW 13.5 % (11.9-15.9); WHITE BLOOD COUNT 3.8 K/mm3 (4.0-10.0)
[2022-06-21 12:21] LABS: CALCIUM 9.3 mg/dL (8.5-10.1)
[2022-06-21 12:22] LABS: ALBUMIN 3.4 g/dl (3.4-5.0)
[2022-06-21 12:26] LABS: BILIRUBIN,TOTAL 0.3 mg/dL (0.2-1); TOT PROT 6.7 g/dl (6.4-8.2)
[2022-06-21 14:57] LABS: HIV INTERPRETATION NEGATIVE (NEGATIVE)
[2022-06-21] MEDS: MELATONIN 5 MG TABLETS PO SCH (22:35)
[2022-06-21] MEDS: THIAMINE HCL 100 MG TABLET (FP) PO SCH (22:35)
[2022-06-21] MEDS: busPIRone HCL 10 MG TABLET (FP) PO SCH (22:35)
[2022-06-22] MEDS: busPIRone HCL 10 MG TABLET (FP) PO SCH ×3 (05:12→22:12)
[2022-06-22] MEDS: chlordiazePOXIDE HCL 25 MG CAPSULE PO SCH ×4 (05:12→22:11)
[2022-06-22] MEDS: NICOTINE 14 MG/24 HOURS TOPICAL PATCH TD SCH (10:31)
[2022-06-22] MEDS: FAMOTIDINE 20 MG TABLET PO SCH (10:31)
[2022-06-22] MEDS: SERTRALINE HCL 50 MG TABLET (FP) PO SCH (10:31)
[2022-06-22] MEDS: PRENATAL VITAMINS W/ FOLIC ACID TABLET (FP) PO SCH (10:31)
[2022-06-22] MEDS: TOLNAFTATE 1% CREAM 15 GM TUBE TP SCH ×2 (10:32→22:13)
[2022-06-22] MEDS: THIAMINE HCL 100 MG TABLET (FP) PO SCH (22:12)
[2022-06-22] MEDS: MELATONIN 5 MG TABLETS PO SCH (22:12)
[2022-06-23] MEDS: chlordiazePOXIDE HCL 25 MG CAPSULE PO SCH ×4 (05:37→22:27)
[2022-06-23] MEDS: busPIRone HCL 10 MG TABLET (FP) PO SCH ×3 (05:37→22:26)
[2022-06-23] MEDS: METHOCARBAMOL 500 MG TABLET PO PRN ×3 (06:21→19:01)
[2022-06-23] MEDS: NICOTINE 14 MG/24 HOURS TOPICAL PATCH TD SCH (10:35)
[2022-06-23] MEDS: SERTRALINE HCL 50 MG TABLET (FP) PO SCH (10:35)
[2022-06-23] MEDS: PRENATAL VITAMINS W/ FOLIC ACID TABLET (FP) PO SCH (10:35)
[2022-06-23] MEDS: FAMOTIDINE 20 MG TABLET PO SCH (10:35)
[2022-06-23] MEDS: TOLNAFTATE 1% CREAM 15 GM TUBE TP SCH ×2 (10:36→22:26)
[2022-06-23] MEDS: MELATONIN 5 MG TABLETS PO SCH (22:25)
[2022-06-23] MEDS: THIAMINE HCL 100 MG TABLET (FP) PO SCH (22:26)
[2022-06-24] MEDS ORDERED: chlordiazePOXIDE HCL 10 MG CAPSULE PO PRN
[2022-06-24] MEDS: chlordiazePOXIDE HCL 10 MG CAPSULE PO SCH ×4 (06:07→22:13)
[2022-06-24] MEDS: busPIRone HCL 10 MG TABLET (FP) PO SCH ×3 (06:07→22:13)
[2022-06-24] MEDS: TOLNAFTATE 1% CREAM 15 GM TUBE TP SCH ×2 (10:07→22:13)
[2022-06-24] MEDS: SERTRALINE HCL 50 MG TABLET (FP) PO SCH (10:07)
[2022-06-24] MEDS: NICOTINE 14 MG/24 HOURS TOPICAL PATCH TD SCH (10:07)
[2022-06-24] MEDS: FAMOTIDINE 20 MG TABLET PO SCH (10:07)
[2022-06-24] MEDS: PRENATAL VITAMINS W/ FOLIC ACID TABLET (FP) PO SCH (10:07)
[2022-06-24] MEDS: hydrOXYzine PAMOATE 25 MG CAPSULE (FP) PO PRN (13:07)
[2022-06-24] MEDS: THIAMINE HCL 100 MG TABLET (FP) PO SCH (22:13)
[2022-06-24] MEDS: MELATONIN 5 MG TABLETS PO SCH (22:13)
[2022-06-25] MEDS: chlordiazePOXIDE HCL 10 MG CAPSULE PO SCH ×2 (05:24→18:20)
[2022-06-25] MEDS: busPIRone HCL 10 MG TABLET (FP) PO SCH ×3 (05:24→22:19)
[2022-06-25] MEDS: FAMOTIDINE 20 MG TABLET PO SCH (10:10)
[2022-06-25] MEDS: NICOTINE 14 MG/24 HOURS TOPICAL PATCH TD SCH (10:10)
[2022-06-25] MEDS: PRENATAL VITAMINS W/ FOLIC ACID TABLET (FP) PO SCH (10:10)
[2022-06-25] MEDS: SERTRALINE HCL 50 MG TABLET (FP) PO SCH (10:10)
[2022-06-25] MEDS: TOLNAFTATE 1% CREAM 15 GM TUBE TP SCH ×2 (10:11→22:18)
[2022-06-25] MEDS: MELATONIN 5 MG TABLETS PO SCH (22:19)
[2022-06-25] MEDS: THIAMINE HCL 100 MG TABLET (FP) PO SCH (22:19)
[2022-06-25] MEDS: hydrOXYzine PAMOATE 25 MG CAPSULE (FP) PO PRN (22:20)
[2022-06-26] MEDS ORDERED: chlordiazePOXIDE HCL 10 MG CAPSULE PO ONE (05:00)
[2022-06-26] MEDS: busPIRone HCL 10 MG TABLET (FP) PO SCH (05:22)
[2022-06-26 10:08] VITALS: BP 104/71; PULSE 56; RESP 18; TEMP 97.1
== END 2022-06-26 09:25 | disposition home or self-care (01) | DRG 774 ==
LOC: YASAS 15:33 → UNDOADMIN 19:16 → Y3N 19:16
PROVIDERS: ADMIT Allergy & Immunology; ATTEND Surgery
PROC: HZ2ZZZZ Detoxification Services for Substance Abuse Treatment (ICD-10-PCS; principal; 2022-06-20)
DX: F10.230 Alcohol dependence with withdrawal, uncomplicated (principal); F14.20 Cocaine dependence, uncomplicated; F12.20 Cannabis dependence, uncomplicated; F17.220 Nicotine dependence, chewing tobacco, uncomplicated; F31.9 Bipolar disorder, unspecified; F20.0 Paranoid schizophrenia; F43.10 Post-traumatic stress disorder, unspecified; G47.00 Insomnia, unspecified; J45.20 Mild intermittent asthma, uncomplicated; J44.9 Chronic obstructive pulmonary disease, unspecified; K21.9 Gastro-esophageal reflux disease without esophagitis; Z91.410 Personal history of adult physical and sexual abuse; Z56.0 Unemployment, unspecified; Z59.01 Sheltered homelessness; Z88.8 Allergy status to other drugs, medicaments and biological substances
CPT/HCPCS: 36415; 80053; 82947; 82962; 83036; 84520; 85027; 86780; 87389; 87811; 90677; 93005; 93010; C9803-CS; U0003; U0005

== ENCOUNTER 2022-07-28 19:52 | Inpatient (IN) | payer OTHER ==
[2022-07-28 20:52] VITALS: BMI 19.8
[2022-07-28] MEDS ORDERED: BENZOCAINE/MENTHOL (CHLORASEPTIC ) LOZENGE MM PRN (23:01)
[2022-07-28] MEDS ORDERED: BISMUTH SUBSALICYLATE 524 MG/30 ML PO PRN (23:01)
[2022-07-28] MEDS ORDERED: DICYCLOMINE HCL 10 MG CAPSULE PO PRN (23:01)
[2022-07-28] MEDS ORDERED: ONDANSETRON *ODT* 4 MG TABLET SL PRN (23:01)
[2022-07-28] MEDS ORDERED: METHOCARBAMOL 500 MG TABLET PO PRN (23:01)
[2022-07-28] MEDS ORDERED: MAGNESIUM CITRATE 300 ML BOTTLE PO PRN (23:01)
[2022-07-28] MEDS ORDERED: ACETAMINOPHEN 325 MG TABLET (FP) PO PRN ×2 (23:01)
[2022-07-28] MEDS ORDERED: NALOXONE HCL (KLOXXADO) 8 MG SPRAY NS PRN (23:01)
[2022-07-28] MEDS ORDERED: MAGNESIUM HYDROX 2400MG/30ML ORAL SUSPENSION 30 ML CUP PO PRN (23:01)
[2022-07-28] MEDS ORDERED: NICOTINE POLACRILEX 2 MG GUM BUC PRN (23:01)
[2022-07-28] MEDS ORDERED: MAG HYDROX/AL HYDROX/SIMETH 30 ML UNIT-DOSE CUP PO PRN (23:01)
[2022-07-28] MEDS ORDERED: LOPERAMIDE HCL 2 MG CAPSULE PO PRN (23:01)
[2022-07-28] MEDS ORDERED: IBUPROFEN 400 MG TABLET (FP) PO PRN (23:01)
[2022-07-28] MEDS ORDERED: IBUPROFEN 600 MG TABLET (FP) PO PRN (23:01)
[2022-07-29] MEDS ORDERED: MELATONIN 5 MG TABLETS PO ONE (01:35)
[2022-07-29] MEDS ORDERED: hydrOXYzine PAMOATE 25 MG CAPSULE (FP) PO ONE (01:37)
[2022-07-29] MEDS: PRENATAL VITAMINS W/ FOLIC ACID TABLET (FP) PO SCH (10:49)
[2022-07-29] MEDS: NICOTINE 14 MG/24 HOURS TOPICAL PATCH TD SCH (10:49)
[2022-07-29 11:02] LABS: ALBUMIN 3.2 g/dl (3.4-5.0); BLOOD UREA NITROGEN 16.7 mg/dL (7-18); CALCIUM 8.8 mg/dL (8.5-10.1)
[2022-07-29 11:04] LABS: HEMATOCRIT 39.3 % (35.4-49); HEMOGLOBIN 12.8 GM/dL (11.7-16.9); MCH 32.3 pg (25.7-33.7); MCHC 32.7 g/dl (32.0-35.9); MEAN CELL VOLUME 98.9 fl (80-96); PLATELET COUNT 260 10^3/uL (134-434); RBC 3.97 M/mm3 (4.00-5.60); RDW 13.9 % (11.9-15.9); WHITE BLOOD COUNT 3.5 K/mm3 (4.0-10.0)
[2022-07-29 11:07] LABS: BILIRUBIN,TOTAL 0.3 mg/dL (0.2-1); TOT PROT 6.4 g/dl (6.4-8.2)
[2022-07-29] MEDS ORDERED: SERTRALINE HCL 50 MG TABLET (FP) PO ONE (11:14)
[2022-07-29] MEDS ORDERED: chlordiazePOXIDE HCL 25 MG CAPSULE PO PRN (11:15)
[2022-07-29] MEDS ORDERED: cloNIDine HCL 0.1 MG TABLET PO PRN (11:15)
[2022-07-29] MEDS ORDERED: methaDONE HCL 10 MG TABLET (FOR DETOX USE ONLY) PO ONE (11:15)
[2022-07-29] MEDS: busPIRone HCL 10 MG TABLET (FP) PO SCH ×2 (13:39→22:08)
[2022-07-29 17:19] VITALS: RESP 18
[2022-07-29] MEDS: chlordiazePOXIDE HCL 25 MG CAPSULE PO SCH ×2 (17:42→22:09)
[2022-07-29] MEDS ORDERED: THIAMINE HCL 100 MG TABLET (FP) PO SCH (22:00)
[2022-07-29] MEDS ORDERED: QUEtiapine FUMARATE 50 MG TABLET PO PRN (22:00)
[2022-07-29] MEDS ORDERED: MELATONIN 5 MG TABLETS PO SCH (22:00)
[2022-07-30] MEDS: busPIRone HCL 10 MG TABLET (FP) PO SCH ×2 (06:24→13:54)
[2022-07-30] MEDS: chlordiazePOXIDE HCL 25 MG CAPSULE PO SCH ×3 (06:24→19:33)
[2022-07-30] MEDS ORDERED: SERTRALINE HCL 50 MG TABLET (FP) PO SCH (10:00)
[2022-07-30] MEDS: PRENATAL VITAMINS W/ FOLIC ACID TABLET (FP) PO SCH (10:02)
[2022-07-30] MEDS: NICOTINE 14 MG/24 HOURS TOPICAL PATCH TD SCH (10:02)
[2022-07-30 19:14] VITALS: BP 113/79; PULSE 76; TEMP 98.4
[2022-07-31] MEDS ORDERED: chlordiazePOXIDE HCL 25 MG CAPSULE PO SCH (05:00)
[2022-07-31] MEDS ORDERED: methaDONE HCL 10 MG TABLET (FOR DETOX USE ONLY) PO ONE (10:00)
[2022-08-01] MEDS ORDERED: chlordiazePOXIDE HCL 10 MG CAPSULE PO PRN
[2022-08-01] MEDS ORDERED: chlordiazePOXIDE HCL 10 MG CAPSULE PO SCH (05:00)
[2022-08-02] MEDS ORDERED: chlordiazePOXIDE HCL 10 MG CAPSULE PO SCH (05:00)
[2022-08-02] MEDS ORDERED: methaDONE HCL 10 MG TABLET (FOR DETOX USE ONLY) PO ONE (10:00)
[2022-08-03] MEDS ORDERED: chlordiazePOXIDE HCL 10 MG CAPSULE PO ONE (05:00)
== END 2022-07-30 23:58 | disposition short-term general hospital (02) | DRG 773 ==
LOC: YASAS 19:52 → Y3N 07-29 00:53 → UNDOADMIN 07-29 00:53 → Y3N 07-29 01:07
PROVIDERS: ADMIT Allergy & Immunology; ATTEND Allergy & Immunology
PROC: HZ2ZZZZ Detoxification Services for Substance Abuse Treatment (ICD-10-PCS; principal; 2022-07-29)
DX: F11.23 Opioid dependence with withdrawal (principal); F10.20 Alcohol dependence, uncomplicated; F14.20 Cocaine dependence, uncomplicated; F16.20 Hallucinogen dependence, uncomplicated; F12.20 Cannabis dependence, uncomplicated; F17.210 Nicotine dependence, cigarettes, uncomplicated; F31.9 Bipolar disorder, unspecified; F20.0 Paranoid schizophrenia; J44.9 Chronic obstructive pulmonary disease, unspecified; J45.20 Mild intermittent asthma, uncomplicated; E78.00 Pure hypercholesterolemia, unspecified; K21.9 Gastro-esophageal reflux disease without esophagitis; R06.89 Other abnormalities of breathing; Z87.828 Personal history of other (healed) physical injury and trauma; Z56.0 Unemployment, unspecified; Z59.00 Homelessness unspecified
CPT/HCPCS: 36415; 80053; 82962; 85027; 86780; C9803-CS; U0003; U0005

== ENCOUNTER 2022-07-30 20:07 | Inpatient (IN) | payer OTHER ==
[2022-07-30] MEDS ORDERED: NALOXONE HCL 0.4 MG/ML VIAL ONE ×3 (20:31→21:49)
[2022-07-30] MEDS ORDERED: ONDANSETRON 4 MG/2 ML VIAL ONE (20:31)
[2022-07-30] MEDS ORDERED: ONDANSETRON 4 MG/2 ML VIAL IVPUSH ONE (20:42)
[2022-07-30] MEDS ORDERED: NALOXONE HCL 0.4 MG/ML VIAL IVPUSH ONE ×3 (20:42→21:54)
[2022-07-30] MEDS ORDERED: SODIUM CHLORIDE 0.9% 1000 ML INFUS.BAG IV ONE (21:01)
[2022-07-30 21:12] LABS: BASO % 0.7 % (0-2.0); EOS % 1.1 % (0-4.5); HEMOGLOBIN 13.3 GM/dL (11.7-16.9); LYMPH % 24.7 % (8-40); MCHC 33.2 g/dl (32.0-35.9); MEAN CELL VOLUME 99.4 fl (80-96); MEAN PLT VOLUME 6.7 fl (7.5-11.1); MONO % 9.5 % (3.8-10.2); PLATELET COUNT 244 10^3/uL (134-434); RBC 4.02 M/mm3 (4.00-5.60); RDW 13.9 % (11.9-15.9); WHITE BLOOD COUNT 4.3 K/mm3 (4.0-10.0)
[2022-07-30 21:21] LABS: CALCIUM 9.3 mg/dL (8.5-10.1)
[2022-07-30 21:22] LABS: ALBUMIN 3.4 g/dl (3.4-5.0); BLOOD UREA NITROGEN 12.4 mg/dL (7-18)
[2022-07-30 21:26] LABS: CREATININE 0.9 mg/dL (0.55-1.3)
[2022-07-30 21:28] LABS: BILIRUBIN,TOTAL 0.4 mg/dL (0.2-1); TOT PROT 7.2 g/dl (6.4-8.2)
[2022-07-30 21:30] LABS: INR 1.05 (0.83-1.09); PROTHROMBIN TIME (PATIENT) 12.1 SEC (9.7-13.0)
[2022-07-30] MEDS ORDERED: NALOXONE HCL 2 MG in DEXTROSE 5%-WATER - 495 ML IV SCH (22:00)
[2022-07-30 22:36] LABS: BLOOD UREA NITROGEN 11.9 mg/dL (7-18); CALCIUM 9.3 mg/dL (8.5-10.1)
[2022-07-30 22:39] LABS: CREATININE 0.9 mg/dL (0.55-1.3)
[2022-07-30 22:57] LABS: OPIATES, URI NEGATIVE (NEGATIVE); URINE BARBITURATES NEGATIVE (NEGATIVE)
[2022-07-30 23:13] LABS: COCAINE, UR POSITIVE (NEGATIVE); METHADONE, UR POSITIVE (NEGATIVE); PHENCYCLIDINE,URINE POSITIVE (NEGATIVE); URINE AMPHETAMINES NEGATIVE (NEGATIVE); URINE BENZODIAZEPINES POSITIVE (NEGATIVE)
[2022-07-31 00:58] VITALS: BMI 21.2
[2022-07-31] MEDS: MUPIROCIN 2% TOPICAL OINTMENT FOR DECOLONIZATION NS SCH ×3 (01:22→22:19)
[2022-07-31 01:26] LABS: ARTERIAL BLD GAS O2 SATURATION 96.2 % (95-98); ARTERIAL BLOOD GAS BASE EXCESS 4.8 mmol/L (-2-2); ARTERIAL BLOOD GAS PO2 93.6 mmHg (80-100); ARTERIAL BLOOD GAS pH 7.303 (7.350-7.450)
[2022-07-31 01:31] LABS: ALLENS TEST POSITIVE
[2022-07-31] MEDS ORDERED: ALBUTEROL SO4 HFA INHALER IH PRN (08:58)
[2022-07-31] MEDS ORDERED: SERTRALINE HCL 25 MG TABLET (FP) PO SCH (10:00)
[2022-07-31] MEDS: busPIRone HCL 10 MG TABLET (FP) PO SCH ×2 (14:55→22:14)
[2022-07-31] MEDS ORDERED: IBUPROFEN 400 MG TABLET (FP) PO ONE (21:56)
[2022-07-31] MEDS ORDERED: CHLORHEXIDINE GLUCONATE 4% CLEANSER FOR DECOLONIZATION TP SCH (22:00)
[2022-08-01] MEDS: busPIRone HCL 10 MG TABLET (FP) PO SCH ×4 (05:28→22:28)
[2022-08-01] MEDS ORDERED: ALBUTEROL SO4 HFA INHALER IH PRN (05:58)
[2022-08-01 08:01] VITALS: RESP 18
[2022-08-01] MEDS: SERTRALINE HCL 25 MG TABLET (FP) PO SCH (09:02)
[2022-08-01 11:07] LABS: HEMATOCRIT 38.9 % (35.4-49); HEMOGLOBIN 13.1 GM/dL (11.7-16.9); MCH 33.3 pg (25.7-33.7); MCHC 33.6 g/dl (32.0-35.9); MEAN CELL VOLUME 99.2 fl (80-96); MEAN PLT VOLUME 6.6 fl (7.5-11.1); PLATELET COUNT 232 10^3/uL (134-434); RBC 3.92 M/mm3 (4.00-5.60); RDW 13.4 % (11.9-15.9); WHITE BLOOD COUNT 3.2 K/mm3 (4.0-10.0)
[2022-08-01 11:27] LABS: CALCIUM 9.3 mg/dL (8.5-10.1)
[2022-08-01 11:28] LABS: BLOOD UREA NITROGEN 13.2 mg/dL (7-18); MAGNESIUM 1.9 mg/dL (1.8-2.4)
[2022-08-01 11:31] LABS: CREATININE 0.8 mg/dL (0.55-1.3); PHOSPHOROUS 2.6 mg/dL (2.5-4.9)
[2022-08-01] MEDS: LORazepam 1 MG TABLET PO PRN (12:57)
[2022-08-01] MEDS: ACETAMINOPHEN 325 MG TABLET (FP) PO PRN (12:58)
[2022-08-02] MEDS: busPIRone HCL 10 MG TABLET (FP) PO SCH ×2 (06:28→13:36)
[2022-08-02] MEDS: SERTRALINE HCL 25 MG TABLET (FP) PO SCH (09:44)
[2022-08-02] MEDS ORDERED: THIAMINE HCL 100 MG TABLET (FP) PO SCH (10:00)
[2022-08-02] MEDS ORDERED: HEPARIN NA (PORCINE) 5,000 UNITS/ML 1ML VIAL SQ SCH (10:00)
[2022-08-02] MEDS ORDERED: FOLIC ACID 1 MG TABLET (FP) PO SCH (10:00)
[2022-08-02] MEDS: LORazepam 1 MG TABLET PO PRN (13:35)
[2022-08-02] MEDS: ACETAMINOPHEN 325 MG TABLET (FP) PO PRN (13:35)
[2022-08-02 14:29] VITALS: BP 105/48; PULSE 71; TEMP 98.5
== END 2022-08-02 15:47 | disposition other institution (70) | DRG 816 ==
LOC: JER 20:07 → JERBED 21:58 → JICU 07-31 00:12 → J6S 08-01 05:56
PROVIDERS: ADMIT Internal Medicine Pulmonary Disease; ATTEND Nurse Practitioner Family
DX: T40.1X1A Poisoning by heroin, accidental (unintentional), initial encounter (principal); J96.02 Acute respiratory failure with hypercapnia; G92.8 Other toxic encephalopathy; F20.9 Schizophrenia, unspecified; E78.5 Hyperlipidemia, unspecified; F10.239 Alcohol dependence with withdrawal, unspecified; F17.210 Nicotine dependence, cigarettes, uncomplicated; F31.9 Bipolar disorder, unspecified; J44.9 Chronic obstructive pulmonary disease, unspecified; J45.909 Unspecified asthma, uncomplicated; K21.9 Gastro-esophageal reflux disease without esophagitis; T40.605A Adverse effect of unspecified narcotics, initial encounter; Y92.89 Other specified places as the place of occurrence of the external cause; Z59.00 Homelessness unspecified
CPT/HCPCS: 36415; 36600; 70450-TC; 80048; 80053; 80307; 82803; 83735; 84100; 85025; 85027; 85610; 85730; 93005; 93010; 94660; 99285-25; J1644

== ENCOUNTER 2022-10-15 17:26 | Inpatient (IN) | payer OTHER ==
[2022-10-15 18:30] VITALS: BMI 19.0
[2022-10-15] MEDS: PRENATAL VITAMINS W/ FOLIC ACID TABLET (FP) PO SCH (19:04)
[2022-10-15] MEDS ORDERED: IBUPROFEN 600 MG TABLET (FP) PO PRN (19:29)
[2022-10-15] MEDS ORDERED: MAG HYDROX/AL HYDROX/SIMETH 30 ML UNIT-DOSE CUP PO PRN (19:29)
[2022-10-15] MEDS ORDERED: MAGNESIUM HYDROX 2400MG/30ML ORAL SUSPENSION 30 ML CUP PO PRN (19:29)
[2022-10-15] MEDS ORDERED: DICYCLOMINE HCL 10 MG CAPSULE PO PRN (19:29)
[2022-10-15] MEDS ORDERED: NALOXONE HCL (KLOXXADO) 8 MG SPRAY NS PRN (19:29)
[2022-10-15] MEDS ORDERED: BISMUTH SUBSALICYLATE 524 MG/30 ML PO PRN (19:29)
[2022-10-15] MEDS ORDERED: LOPERAMIDE HCL 2 MG CAPSULE PO PRN (19:29)
[2022-10-15] MEDS ORDERED: POLYETHYLENE GLYCOL (HEALTHYLAX) 3350 17 GM PACKET PO PRN (19:29)
[2022-10-15] MEDS ORDERED: IBUPROFEN 400 MG TABLET (FP) PO PRN (19:29)
[2022-10-15] MEDS ORDERED: NICOTINE 10 MG CARTRIDGE (INHALER) IH PRN (19:29)
[2022-10-15] MEDS ORDERED: BENZOCAINE/MENTHOL (CHLORASEPTIC ) LOZENGE MM PRN (19:29)
[2022-10-15] MEDS ORDERED: ONDANSETRON *ODT* 4 MG TABLET SL PRN (19:29)
[2022-10-15] MEDS ORDERED: ACETAMINOPHEN 325 MG TABLET (FP) PO PRN ×2 (19:29)
[2022-10-15] MEDS ORDERED: ALBUTEROL SO4 HFA INHALER IH PRN (19:33)
[2022-10-15] MEDS ORDERED: hydrOXYzine PAMOATE 25 MG CAPSULE (FP) PO ONE (20:56)
[2022-10-15] MEDS: hydrOXYzine PAMOATE 25 MG CAPSULE (FP) PO PRN (21:03)
[2022-10-15] MEDS ORDERED: MELATONIN 5 MG TABLETS PO SCH (22:00)
[2022-10-15] MEDS: chlordiazePOXIDE HCL 25 MG CAPSULE PO SCH (23:05)
[2022-10-15] MEDS: THIAMINE HCL 100 MG TABLET (FP) PO SCH (23:05)
[2022-10-15] MEDS: FAMOTIDINE 20 MG TABLET PO SCH (23:05)
[2022-10-15] MEDS: METHOCARBAMOL 500 MG TABLET PO PRN (23:06)
[2022-10-16] MEDS: chlordiazePOXIDE HCL 25 MG CAPSULE PO SCH ×4 (05:45→22:17)
[2022-10-16] MEDS: hydrOXYzine PAMOATE 25 MG CAPSULE (FP) PO PRN (10:15)
[2022-10-16] MEDS: FAMOTIDINE 20 MG TABLET PO SCH ×2 (10:15→22:17)
[2022-10-16] MEDS: PRENATAL VITAMINS W/ FOLIC ACID TABLET (FP) PO SCH (10:15)
[2022-10-16] MEDS: RALTEGRAVIR POTASSIUM 400 MG TAB PO SCH ×2 (11:28→21:15)
[2022-10-16] MEDS: EMTRICITABINE 200MG/TENOFOVIR 300MG PO SCH (11:29)
[2022-10-16 11:48] LABS: HEMATOCRIT 38.5 % (35.4-49); HEMOGLOBIN 12.8 GM/dL (11.7-16.9); MCH 32.5 pg (25.7-33.7); MCHC 33.2 g/dl (32.0-35.9); MEAN CELL VOLUME 97.9 fl (80-96); PLATELET COUNT 244 10^3/uL (134-434); RBC 3.93 M/mm3 (4.00-5.60); RDW 13.5 % (11.9-15.9); WHITE BLOOD COUNT 3.1 K/mm3 (4.0-10.0)
[2022-10-16 11:54] LABS: CALCIUM 9.1 mg/dL (8.5-10.1)
[2022-10-16 11:55] LABS: ALBUMIN 3.2 g/dl (3.4-5.0); BLOOD UREA NITROGEN 13.2 mg/dL (7-18)
[2022-10-16 11:58] LABS: CREATININE 0.9 mg/dL (0.55-1.3)
[2022-10-16 12:00] LABS: BILIRUBIN,TOTAL 0.8 mg/dL (0.2-1); TOT PROT 6.6 g/dl (6.4-8.2)
[2022-10-16] MEDS: busPIRone HCL 10 MG TABLET (FP) PO SCH ×2 (15:06→22:17)
[2022-10-16] MEDS: METHOCARBAMOL 500 MG TABLET PO PRN (17:23)
[2022-10-16] MEDS: THIAMINE HCL 100 MG TABLET (FP) PO SCH (22:17)
[2022-10-16] MEDS: QUEtiapine FUMARATE 50 MG TABLET PO SCH (22:18)
[2022-10-17] MEDS: chlordiazePOXIDE HCL 25 MG CAPSULE PO SCH ×4 (05:59→22:30)
[2022-10-17] MEDS: busPIRone HCL 10 MG TABLET (FP) PO SCH ×3 (06:00→22:31)
[2022-10-17] MEDS: RALTEGRAVIR POTASSIUM 400 MG TAB PO SCH ×2 (09:13→22:31)
[2022-10-17] MEDS: EMTRICITABINE 200MG/TENOFOVIR 300MG PO SCH (09:14)
[2022-10-17] MEDS ORDERED: SERTRALINE HCL 25 MG TABLET (FP) PO SCH (10:00)
[2022-10-17] MEDS: SERTRALINE HCL 25 MG TABLET (FP) PO SCH (10:13)
[2022-10-17] MEDS: PRENATAL VITAMINS W/ FOLIC ACID TABLET (FP) PO SCH (10:13)
[2022-10-17] MEDS: METHOCARBAMOL 500 MG TABLET PO PRN ×2 (10:14→17:27)
[2022-10-17] MEDS: FAMOTIDINE 20 MG TABLET PO SCH ×2 (10:14→22:30)
[2022-10-17] MEDS: THIAMINE HCL 100 MG TABLET (FP) PO SCH (22:30)
[2022-10-17] MEDS: QUEtiapine FUMARATE 50 MG TABLET PO SCH (22:30)
[2022-10-18] MEDS ORDERED: chlordiazePOXIDE HCL 10 MG CAPSULE PO SCH (05:00)
[2022-10-18] MEDS: busPIRone HCL 10 MG TABLET (FP) PO SCH (06:01)
[2022-10-18 08:41] VITALS: BP 92/67; PULSE 75; RESP 16; TEMP 96.9
[2022-10-18] MEDS: RALTEGRAVIR POTASSIUM 400 MG TAB PO SCH (09:37)
[2022-10-18] MEDS: FAMOTIDINE 20 MG TABLET PO SCH (09:37)
[2022-10-18] MEDS: PRENATAL VITAMINS W/ FOLIC ACID TABLET (FP) PO SCH (09:37)
[2022-10-18] MEDS: EMTRICITABINE 200MG/TENOFOVIR 300MG PO SCH (09:37)
[2022-10-18] MEDS: SERTRALINE HCL 25 MG TABLET (FP) PO SCH (09:37)
[2022-10-19] MEDS ORDERED: chlordiazePOXIDE HCL 10 MG CAPSULE PO SCH (05:00)
[2022-10-20] MEDS ORDERED: chlordiazePOXIDE HCL 10 MG CAPSULE PO ONE (05:00)
== END 2022-10-18 09:10 | disposition home or self-care (01) | DRG 774 ==
LOC: YASAS 17:26 → Y6N 20:35
PROVIDERS: ADMIT Allergy & Immunology; ATTEND Surgery
PROC: HZ2ZZZZ Detoxification Services for Substance Abuse Treatment (ICD-10-PCS; principal; 2022-10-15)
DX: F10.230 Alcohol dependence with withdrawal, uncomplicated (principal); F14.20 Cocaine dependence, uncomplicated; F12.20 Cannabis dependence, uncomplicated; F17.210 Nicotine dependence, cigarettes, uncomplicated; F31.9 Bipolar disorder, unspecified; F20.0 Paranoid schizophrenia; F91.8 Other conduct disorders; J45.20 Mild intermittent asthma, uncomplicated; D50.9 Iron deficiency anemia, unspecified; J44.9 Chronic obstructive pulmonary disease, unspecified; E78.5 Hyperlipidemia, unspecified; K21.9 Gastro-esophageal reflux disease without esophagitis; G47.00 Insomnia, unspecified; Z86.59 Personal history of other mental and behavioral disorders; Z91.410 Personal history of adult physical and sexual abuse; Z91.51 Personal history of suicidal behavior; Z56.0 Unemployment, unspecified; Z59.00 Homelessness unspecified
CPT/HCPCS: 36415; 80053; 85027; 86780; C9803-CS; U0003; U0005

== ENCOUNTER 2023-07-16 16:36 | Inpatient (IN) | payer OTHER ==
[2023-07-16 17:16] VITALS: BMI 20.2
[2023-07-16] MEDS ORDERED: POLYETHYLENE GLYCOL (HEALTHYLAX) 3350 17 GM PACKET PO PRN (19:39)
[2023-07-16] MEDS ORDERED: BENZOCAINE/MENTHOL (CHLORASEPTIC ) LOZENGE MM PRN (19:39)
[2023-07-16] MEDS ORDERED: MAGNESIUM HYDROX 2400MG/30ML ORAL SUSPENSION 30 ML CUP PO PRN (19:39)
[2023-07-16] MEDS ORDERED: NALOXONE HCL 0.4 MG/ML VIAL IM PRN (19:39)
[2023-07-16] MEDS ORDERED: BENZONATATE 200 MG CAPSULE PO PRN (19:39)
[2023-07-16] MEDS ORDERED: IBUPROFEN 400 MG TABLET (FP) PO PRN (19:39)
[2023-07-16] MEDS ORDERED: LOPERAMIDE HCL 2 MG CAPSULE PO PRN (19:39)
[2023-07-16] MEDS ORDERED: NALOXONE HCL (KLOXXADO) 8 MG SPRAY NS PRN (19:39)
[2023-07-16] MEDS ORDERED: ONDANSETRON *ODT* 4 MG TABLET SL PRN (19:39)
[2023-07-16] MEDS ORDERED: DICYCLOMINE HCL 10 MG CAPSULE PO PRN (19:39)
[2023-07-16] MEDS ORDERED: guaiFENesin 600 MG TABLET.ER (FP) PO PRN (19:39)
[2023-07-16] MEDS ORDERED: IBUPROFEN 600 MG TABLET (FP) PO PRN (19:39)
[2023-07-16] MEDS ORDERED: MAG HYDROX/AL HYDROX/SIMETH 30 ML UNIT-DOSE CUP PO PRN (19:39)
[2023-07-16] MEDS ORDERED: NICOTINE POLACRILEX 2 MG GUM BUC PRN (19:39)
[2023-07-16] MEDS ORDERED: BISMUTH SUBSALICYLATE 524 MG/30 ML PO PRN (19:39)
[2023-07-16] MEDS ORDERED: ACETAMINOPHEN 325 MG TABLET (FP) PO PRN (19:39)
[2023-07-16] MEDS ORDERED: MELATONIN 5 MG TABLETS PO SCH (22:00)
[2023-07-16] MEDS: THIAMINE HCL 100 MG TABLET (FP) PO SCH (22:02)
[2023-07-16] MEDS: hydrOXYzine PAMOATE 25 MG CAPSULE (FP) PO PRN (22:03)
[2023-07-16] MEDS: METHOCARBAMOL 500 MG TABLET PO PRN (22:03)
[2023-07-17] MEDS: METHOCARBAMOL 500 MG TABLET PO PRN (09:59)
[2023-07-17] MEDS: hydrOXYzine PAMOATE 25 MG CAPSULE (FP) PO PRN (09:59)
[2023-07-17] MEDS: PRENATAL VITAMINS W/ FOLIC ACID TABLET (FP) PO SCH (09:59)
[2023-07-17] MEDS: GABAPENTIN 300 MG CAPSULE PO SCH (11:27)
[2023-07-17] MEDS: DIVALPROEX SODIUM 500 MG TABLET E.C. PO SCH ×2 (11:27→22:50)
[2023-07-17] MEDS ORDERED: chlordiazePOXIDE HCL 25 MG CAPSULE PO PRN (12:45)
[2023-07-17] MEDS: chlordiazePOXIDE HCL 25 MG CAPSULE PO SCH ×3 (12:57→22:50)
[2023-07-17] MEDS ORDERED: LITHIUM CARBONATE 450 MG TABLET.ER PO SCH (22:00)
[2023-07-17] MEDS ORDERED: PRAZOSIN HCL 1 MG CAPSULE PO SCH (22:00)
[2023-07-17] MEDS ORDERED: OLANZapine 10 MG TABLET PO SCH ×2 (22:00)
[2023-07-17] MEDS: THIAMINE HCL 100 MG TABLET (FP) PO SCH (22:49)
[2023-07-18] MEDS: chlordiazePOXIDE HCL 25 MG CAPSULE PO SCH ×2 (06:00→10:29)
[2023-07-18 06:11] VITALS: RESP 18
[2023-07-18 09:46] VITALS: BP 95/60; PULSE 70; TEMP 97.8
[2023-07-18] MEDS: GABAPENTIN 300 MG CAPSULE PO SCH (10:28)
[2023-07-18] MEDS: PRENATAL VITAMINS W/ FOLIC ACID TABLET (FP) PO SCH (10:28)
[2023-07-18] MEDS: DIVALPROEX SODIUM 500 MG TABLET E.C. PO SCH (10:29)
[2023-07-18 12:27] LABS: POTASSIUM 4.1 mmol/L (3.5-5.1)
[2023-07-18 12:29] LABS: ALBUMIN 3.2 g/dl (3.4-5.0)
[2023-07-18 12:30] LABS: CALCIUM 8.7 mg/dL (8.5-10.1)
[2023-07-18 12:31] LABS: BLOOD UREA NITROGEN 17.9 mg/dL (7-18)
[2023-07-18 12:33] LABS: HEMATOCRIT 39.4 % (35.4-49); HEMOGLOBIN 13.3 GM/dL (11.7-16.9); MCHC 33.8 g/dl (32.0-35.9); MEAN CELL VOLUME 94.6 fl (80-96); PLATELET COUNT 261 10^3/uL (134-434); RBC 4.17 M/mm3 (4.00-5.60); RDW 14.2 % (11.9-15.9); WHITE BLOOD COUNT 3.3 K/mm3 (4.0-10.0)
[2023-07-18 12:36] LABS: BILIRUBIN,TOTAL 0.4 mg/dL (0.2-1); TOT PROT 6.8 g/dl (6.4-8.2)
[2023-07-18 13:14] LABS: ANISOCYTOSIS 0; HELMET CELLS 0; HOWELL-JOLLY BODIES 0; MACROCYTOSIS 0; OVALOCYTE 0; ROULEAU 0; SICKELED CELLS 0; TARGET CELLS 0; TEAR DROP CELLS 0; TOXIC GRANULATION 0
[2023-07-19] MEDS ORDERED: chlordiazePOXIDE HCL 25 MG CAPSULE PO SCH (05:00)
[2023-07-20] MEDS ORDERED: chlordiazePOXIDE HCL 10 MG CAPSULE PO PRN
[2023-07-20] MEDS ORDERED: chlordiazePOXIDE HCL 10 MG CAPSULE PO SCH (05:00)
[2023-07-21] MEDS ORDERED: chlordiazePOXIDE HCL 10 MG CAPSULE PO SCH (05:00)
[2023-07-22] MEDS ORDERED: chlordiazePOXIDE HCL 10 MG CAPSULE PO ONE (05:00)
== END 2023-07-18 12:27 | disposition home or self-care (01) | DRG 774 ==
LOC: YASAS 16:36 → Y3N 19:36
PROVIDERS: ADMIT Allergy & Immunology; ATTEND Surgery
PROC: HZ2ZZZZ Detoxification Services for Substance Abuse Treatment (ICD-10-PCS; principal; 2023-07-16)
DX: F10.230 Alcohol dependence with withdrawal, uncomplicated (principal); F14.20 Cocaine dependence, uncomplicated; F17.210 Nicotine dependence, cigarettes, uncomplicated; F31.9 Bipolar disorder, unspecified; F43.10 Post-traumatic stress disorder, unspecified; E78.2 Mixed hyperlipidemia; J44.9 Chronic obstructive pulmonary disease, unspecified; Z59.01 Sheltered homelessness; Z88.8 Allergy status to other drugs, medicaments and biological substances
CPT/HCPCS: 36415; 80053; 80164; 80178; 85025; 87635